=== PATIENT | female | born 1965 | race Caucasian/White ===

== ENCOUNTER 2017-03-05 14:20 | Inpatient (IN) ==
[2017-03-05] MEDS ORDERED: IPRATROPIUM/ALBUTEROL 3 ML AMPUL.NEB NEB ONE ×3 (14:40→15:51)
[2017-03-05] MEDS ORDERED: 0.9 % SODIUM CHLORIDE 1,000 ML IV ONE (14:40)
--- NOTE | 2017-03-05 15:01 | Emergency Department Note ---
General Adult HPI - General Chief complaint: Cold/Flu Symptoms Stated complaint: SOB, cough, chest congestion Time Seen by Provider: 03/05/17 14:27 Source: patient Mode of arrival: ambulatory Limitations: no limitations - History of Present Illness HPI Narrative: 51-year-old female presents with cough and chest congestion 5 days. She states she talked to her PCP and they called in azithromycin which she has been taking for 3 days. She went in to see her PCP today but they said she should come in to the ER because she is getting worse. She has shortness of breath and has a history of pneumonia. She does not feel as though she has had a fever. She has not been eating for the last 2 days and has had poor p.o. intake. She has not vomited. No history of COPD or asthma but she chronically gets pneumonia/bronchitis - Related Data Home Medications Medication Instructions Recorded Confirmed FLUoxetine HCL [Prozac] 60 mg PO QAM 10/08/15 03/05/17 HYDROcodone/APAP 10/325MG [[place] 1 tab PO Q6 10/08/15 03/05/17 10/325Mg] Pregabalin [Lyrica] 150 mg PO Q6H 10/08/15 03/05/17 busPIRone [Buspar] 15 mg PO TID 10/08/15 03/05/17 fentaNYL [Duragesic] 75 mcg TOPICAL Q72H 10/14/15 03/05/17 Allergies Allergy/AdvReac Type Severity Reaction Status Date / Time Amoxicillin Allergy Mild Hives Verified 10/08/15 13:16 Review of Systems All systems ED: reviewed and negative except as stated. 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 Absent: conjunctival injection - Neck Neck exam: Present: normal inspection, full ROM - Chest Chest inspection: Present: normal inspection, symmetric chest wall rise - Respiratory Respiratory exam: Present: wheezes (crackles and wheezes in all lung armstrong) - Cardiovascular Cardiovascular exam: Present: regular rate, normal heart sounds - Abdominal Exam Abdominal exam: Present: soft, normal bowel sounds. Absent: tenderness - Extremities Exam Extremities exam: Present: normal inspection, full ROM - Neurological Exam Neurological exam: Present: alert, oriented X3 - Psychiatric Psychiatric exam: Present: normal affect, normal mood - Skin Skin exam: Present: warm, dry, intact Course Course Narrative: During her stay she would start to fall asleep and her oxygen saturation would drop to mid 80s. She was put on Oxygen and moved to a telemetry bed. Labs looked OK but since she could not go off O2 without dropping she will be admitted by Dr. Burgos. She also takes pain medication for back and neck pain. Vital Signs Temperature 98.0 F 03/05/17 14:21 Pulse Rate 58 L 03/05/17 14:21 Respiratory Rate 18 03/05/17 14:21 Blood Pressure 118/65 03/05/17 14:21 Pulse Oximetry (%) 93 03/05/17 14:21 Temperature 98.0 F 03/05/17 14:21 Pulse Rate 76 03/05/17 17:16 Respiratory Rate 22 03/05/17 15:21 Blood Pressure 106/69 03/05/17 17:16 Pulse Oximetry (%) 94 03/05/17 17:16 Medical Decision Making - Lab Data Lab results reviewed: Yes I reviewed the patient's lab results. Result diagrams: 03/05/17 14:59 03/05/17 14:58 Lab Results 03/05/17 03/05/17 03/05/17 Range/Units 14:58 14:58 14:58 WBC (4.5-11.0) K/mcL RBC (4.00-5.20) M/mcL Hgb (12.0-15.0) g/dL Hct (36.0-48.0) % MCV (80.0-100.0) fL MCH (26.0-34.0) pg MCHC (31.0-36.0) g/dL RDW (11.5-14.5) % Plt Count (140-440) K/mcL MPV (7.4-10.4) fL Total Counted Seg Neutrophils % (38-78) % Band Neutrophils % Lymphocytes % (15-49) % Monocytes % (Manual) (1-12) % Eosinophils % (Manual) (0-7) % Basophils % (Manual) (0-2) % Platelet Estimate (NORMAL) RBC Morphology (NORMAL) D-Dimer 0.88 H (0.00-0.40) ug/ml VBG Lactic Acid 1.8 (0.5-2.2) mmol/L Sodium 137 (133-145) mmol/L Potassium 3.4 (3.3-5.1) mmol/L Chloride 94 L (96-108) mmol/L Carbon Dioxide 28 (22-30) mmol/L Anion Gap 15.0 (8-16) BUN 12 (6-20) mg/dl Creatinine 0.7 (0.6-1.1) mg/dl GFR Calculation 100 Glucose 96 (70-105) mg/dL Calcium 9.7 (8.6-10.4) mg/dl Total Bilirubin 1.1 H (0.0-1.0) mg/dL AST 21 (0-37) U/l ALT 15 (0-40) U/l Alkaline Phosphatase 114 (39-117) U/L Total Protein 8.1 (5.9-8.4) gm/dL Albumin 4.5 (3.2-5.2) gm/dL Globulin 3.6 (2.2-3.7) gm/dL Albumin/Globulin Ratio 1.3 (1.0-2.3) 03/05/17 Range/Units 14:59 WBC 8.3 (4.5-11.0) K/mcL RBC 4.81 (4.00-5.20) M/mcL Hgb 14.4 (12.0-15.0) g/dL Hct 43.7 (36.0-48.0) % MCV 90.7 (80.0-100.0) fL MCH 30.0 (26.0-34.0) pg MCHC 33.0 (31.0-36.0) g/dL RDW 13.8 (11.5-14.5) % Plt Count 312 (140-440) K/mcL MPV 8.4 (7.4-10.4) fL Total Counted 100 Seg Neutrophils % 80 H (38-78) % Band Neutrophils % Not Reportable Lymphocytes % 13 L (15-49) % Monocytes % (Manual) 4 (1-12) % Eosinophils % (Manual) 2 (0-7) % Basophils % (Manual) 1 (0-2) % Platelet Estimate Normal (NORMAL) RBC Morphology Normal (NORMAL) D-Dimer (0.00-0.40) ug/ml VBG Lactic Acid (0.5-2.2) mmol/L Sodium (133-145) mmol/L Potassium (3.3-5.1) mmol/L Chloride (96-108) mmol/L Carbon Dioxide (22-30) mmol/L Anion Gap (8-16) BUN (6-20) mg/dl Creatinine (0.6-1.1) mg/dl GFR Calculation Glucose (70-105) mg/dL Calcium (8.6-10.4) mg/dl Total Bilirubin (0.0-1.0) mg/dL AST (0-37) U/l ALT (0-40) U/l Alkaline Phosphatase (39-117) U/L Total Protein (5.9-8.4) gm/dL Albumin (3.2-5.2) gm/dL Globulin (2.2-3.7) gm/dL Albumin/Globulin Ratio (1.0-2.3) - Radiology Data Radiology results reviewed: Yes I reviewed the patient's radiology results. Probable atypical left suprahilar infiltrate extending into the left upper lobe. Suggest follow-up chest x-ray two weeks to ensure complete clearance following antibiotics. If there is any persistent density on follow-up film, a chest CT will be required to exclude malignancy Disposition Pt seen by RETAIL PHARMACY MANAGER/PA only: Yes Disposition: Xfer As Inpt ([facility]) Condition: Fair Referrals: Selam Samson [Primary Care Provider] -
--- NOTE | 2017-03-05 15:09 | XRay Report ---
CLINICAL INFORMATION: Shortness of breath and cough COMPARISON: Chest x-ray from 08/28/2014 04/30/2015 FINDINGS: Heart is normal in size configuration. Prominent fat pad blunts the right vertebral ankle as a chronic finding. There appears be a small right suprahilar infiltrate emanating in the right upper lobe. This could also represent atypical mass. Underlying COPD changes noted. Left posterior costophrenic angle is blunted chronically blunted by scar IMPRESSION: Probable atypical left suprahilar infiltrate extending into the left upper lobe. Suggest follow-up chest x-ray two weeks to ensure complete clearance following antibiotics. If there is any persistent density on follow-up film, a chest CT will be required to exclude malignancy Interpreted and Authenticated by: Shimon Rocha 03/05/17
[2017-03-05 15:20] LABS: Mean Cell Volume 90.7 fL (80.0-100.0); Platelet Count 312 K/mcL (140-440); RBC 4.81 M/mcL (4.00-5.20); Red Cell Distribution Width 13.8 % (11.5-14.5)
[2017-03-05 15:37] LABS: Basophils % (Manual) 1 % (0-2); Eosinophils % (Manual) 2 % (0-7); Lymphocytes % 13 % (15-49); Monocytes % (Manual) 4 % (1-12); Platelet Estimate NORMAL (NORMAL); RBC Morphology NORMAL (NORMAL); Segmented Neutrophils % 80 % (38-78)
[2017-03-05 15:38] LABS: ALT/SGPT 15 U/l (0-40); Albumin 4.5 gm/dL (3.2-5.2); Albumin/Globulin Ratio 1.3 (1.0-2.3); Alkaline Phosphatase 114 U/L (39-117); Blood Urea Nitrogen 12 mg/dl (6-20)
[2017-03-05] MEDS ORDERED: methylPREDNISolone SOD SUCC 125 MG/2 ML VIAL IV ONE (15:59)
[2017-03-05] MEDS ORDERED: cefTRIAXone 1 GM in DEXTROSE 5% IN WATER 50 ML IV ONE (16:08)
[2017-03-05] MEDS ORDERED: HYDROcodone/APAP 10/325MG TABLET PO ONE ×2 (17:26→23:46)
[2017-03-05] MEDS ORDERED: HYDROcodone/APAP 5/325MG TABLET PO ONE (17:36)
[2017-03-05] MEDS ORDERED: NALOXONE HCL 0.4 MG/ML VIAL IV PRN (18:53)
[2017-03-05] MEDS ORDERED: MAGNESIUM HYDROXIDE 30 ML ORAL.SUSP PO PRN (18:53)
[2017-03-05] MEDS ORDERED: ONDANSETRON 4 MG/2 ML VIAL IV PRN (18:53)
[2017-03-05] MEDS ORDERED: CALCIUM CARBONATE 500 MG TAB.CHEW CHEWED PRN (18:53)
[2017-03-05] MEDS ORDERED: DOCUSATE SODIUM 100 MG CAPSULE PO PRN (18:53)
[2017-03-05] MEDS ORDERED: IPRATROPIUM 2.5 ML AMPUL.NEB NEB PRN (18:53)
[2017-03-05] MEDS ORDERED: ACETAMINOPHEN 325 MG TABLET PO PRN (18:53)
[2017-03-05] MEDS ORDERED: POTASSIUM CHLORIDE 20 MEQ/10 ML VIAL IV ONE (19:49)
--- NOTE | 2017-03-05 19:52 | Internal Med History&Physical ---
Medical - H&P: HPI Patient information: Note initiated : 03/05/17 at 7:44 pm Patient: Catalina Cole 51 y/o F admitted on 03/05/17 for SOB, cough, chest congestion. History of present illness: Ms. Cole is a 51 year old female with a history of depression, and chronic back pain. About 5 days ago she developed fever, chest congestion, increasing shortness of breath, chills. She had a mild headache and dizziness, but that has mostly resolved. She has had significant anorexia, and says she just has not been able to get herself to eat or drink much over the last several days. She reportedly called her primary care physician, called in a Zithromax prescription. She went to his office today to follow-up, but they told her she was much worse, and needed to come to the emergency room for evaluation. Chest x-ray showed a left apical infiltrate, atypical. O2 saturations seemed fine on room air while she was awake, but when she drifted off to sleep her saturations dropped down into the low 80s. Lactic acid and white blood cell count were normal. Follow-up ABG shows significant room air hypoxia. Patient does report recent cough productive of yellow phlegm. Her chest has been feeling tight. She has not had a bowel movement, but says she also has not eaten. She otherwise denies new eye or ear symptoms, new sinus symptoms, sore throat. She denies chest pain or palpitations, abdominal pain, nausea or vomiting, diarrhea, dysuria. Patient does use edible marijuana products daily, and also drinks about 1 glass of wine or beer every day. She denies recent episodes of getting drunk or passing out. Past medical history: Depression Right knee osteoarthritis. Recurrent bronchitis. History of a lung biopsy with a subsequent pneumothorax. Underlying COPD, previously undiagnosed. Surgical history: Right knee arthroscopy, carpal tunnel surgery, 4 or 5 knee surgeries, neck surgery, 3 back surgeries Current medications: Mirtazapine 10 mg 1-2 tabs nightly as needed Omeprazole 20 mg daily as needed GERD BuSpar 15 mg 3 times daily Lyrica 150 mg every 6 hours Fentanyl patch 75 mcg topically every 48 hours Prozac 60 mg every morning Hydrocodone/APAP 10/325 1 tab every 6 hours as needed Patient reports she eats brownies with marijuana in them, almost daily, to cut down on her need for pain medication per Family history: Father had blood clots, rheumatoid arthritis, skin cancer, gout. Mother had history o osteoporosis, osteoarthritis, rheumatoid arthritis.. Siblings have history of diabetes, rheumatoid arthritis, cancer Social history: Patient does use alcohol, reported as 1 glass of wine or beer per day.. She uses marijuana intervals on an almost daily basis. She smokes cigarettes for about 1 year when she was young, and has not smoked since then. She is from her , although he does accompany her tonight. She says she has been exposed to a couple of coworkers with colds lately, and has been working very hard on building a house. Says she has been struggling with depression, since her son Medical - H&P: Meds Home Medications Medication Instructions Recorded Confirmed Type FLUoxetine HCL [Prozac] 60 mg PO QAM 10/08/15 03/05/17 History HYDROcodone/APAP 10/325MG [[place] 1 tab PO Q6 10/08/15 03/05/17 History 10/325Mg] Pregabalin [Lyrica] 150 mg PO Q6H 10/08/15 03/05/17 History busPIRone [Buspar] 15 mg PO TID 10/08/15 03/05/17 History fentaNYL [Duragesic] 75 mcg TOPICAL Q72H 10/14/15 03/05/17 History Allergies Allergy/AdvReac Type Severity Reaction Status Date / Time Amoxicillin Allergy Mild Hives Verified 10/08/15 13:16 Medical - H&P: Exam - Constitutional Vitals: Temp Pulse Resp BP Pulse Ox 98.1 F 69 16 111/60 92 03/05/17 18:52 03/05/17 18:52 03/05/17 18:52 03/05/17 18:52 03/05/17 18:52 Respiratory rate ranges from 18-24. O2 saturation drops into the low 80s when she is asleep, on room air. She is currently 92% on room air while awake. Temperature 98.1. Heart rate 69. Blood pressure 111/60. She is sitting up in bed, and says she feels much better than when she arrived. She feels that the breathing treatments and oxygen made a huge difference. She is eating a sandwich when I entered the room, and her notes that she really has not eaten anything for several days. He does have a very congested sounding cough. Head: Normocephalic, atraumatic. Eyes: Pupils are fairly pinpoint, but otherwise EOMI, anicteric, PERRLA. Ears: TMs and canals are clear. pharynx is clear. Teeth are in good repair. Posterior pharynx looks normal. Neck is supple, without obvious lymphadenopathy, JVD, thyromegaly, bruits. Cardiac exam shows regular rate and rhythm with normal S1 and S2, without murmurs, rubs, gallops. Lungs: She has diffuse coarse breath sounds and loud wheezing heard throughout all lung armstrong. There is mild accessory muscle use. I did not detect crackles or definite rhonchi. Abdomen: Is soft and nontender without obvious masses. Bowel sounds are active. Extremities: Show no cyanosis, clubbing, edema. Neurologic exam: Is grossly nonfocal Medical - H&P: Reslt - Labs CBC & Chem 7: 03/05/17 14:59 03/05/17 14:58 Labs: March 05: CBC: Differential shows 80% neutrophils, but CBC is otherwise normal. D-dimer is elevated at 0.80 next Lactic acid is normal at 1.8 next LFTs are normal, other than a total bilirubin of 1.1. ABG on 2 L nasal cannula: Shows pH of 7.42, PCO2 43, PO2 of 54, bicarb 27, O2 saturation 88%. Chest x-ray: Shows probable atypical left suprahilar infiltrate extending into the left upper lobe. Follow-up chest x-ray or CT scan is recommended to exclude malignancy. Underlying COPD changes are also noted. Medical - H&P: A/P (1) Left upper lobe pneumonia Current visit: Yes Status: Acute (2) Acute respiratory failure Current visit: Yes Status: Acute (3) COPD (chronic obstructive pulmonary disease) Current visit: Yes Status: Acute (4) Depression Current visit: Yes Status: Acute (5) Chronic pain Current visit: Yes Status: Acute - Narrative A/P Narrative: #1. Pulmonary. This patient has been struggling with cough and shortness of breath for about 5 days now. She presents to the ER today, with an unusual looking chest x-ray. She may well have pneumonia superimposed on COPD, but d-dimer is also elevated. PO2 is quite low on her blood gas. -Admit for closer monitoring. -Treat for pneumonia with IV Rocephin plus Zithromax. -Order CT angiogram, to get a better look at her pneumonia, rule out mass, rule out PE. There is also strong family history of blood clots. Next line-blood and sputum cultures have been ordered. -COPD is noted on her chest x-ray. She is a former smoker. Oxygen, duo nebs, albuterol nebs as needed, pulmonary toilet. Add IV steroids. 2. Psychiatric. History of depression. Continue current medications: Mirtazapine, BuSpar, Prozac. 3. CODE STATUS: Full code. She says her will act as her POA. 4. DVT prophylaxis: Subcu heparin. 5. Chronic pain, related to numerous previous back surgeries. Continue fentanyl patch, Lyrica, as needed [place]. 6. GI. Continue omeprazole for as needed GERD symptoms. 7. Chronic alcohol and marijuana use. Follow for signs of withdrawal. This visit took approximately 60 minutes, to review the case with the ER MD, review the patient's test results, interview and examine her, and write orders. Medical - H&P: Qual - VTE Deep Vein Thrombosis/Pulmonary Embolism Present on Admission: No
[2017-03-05] MEDS: POTASSIUM CHLORIDE 20 MEQ in 0.45 % SODIUM CHLORIDE 1,000 ML IV SCH (19:56)
[2017-03-05] MEDS ORDERED: IOPAMIDOL 100 ML BOTTLE IJ ONE (22:34)
[2017-03-05] MEDS: AZITHROMYCIN 500 MG in DEXTROSE 5% IN WATER 250 ML IV SCH (23:06)
[2017-03-05] MEDS: 0.9 % SODIUM CHLORIDE 10 ML SYRINGE IV SCH (23:06)
[2017-03-05] MEDS: fentaNYL 75 MCG PATCH TOPICAL SCH (23:08)
[2017-03-05] MEDS: PREGABALIN 150 MG CAPSULE PO SCH (23:34)
[2017-03-05] MEDS: IPRATROPIUM/ALBUTEROL 3 ML AMPUL.NEB NEB SCH (23:35)
[2017-03-05] MEDS: BUDESONIDE 0.5 MG/2 ML AMPUL.NEB NEB SCH (23:37)
[2017-03-05] MEDS ORDERED: PREGABALIN 150 MG CAPSULE PO ONE (23:40)
[2017-03-06] MEDS: HYDROcodone/APAP 10/325MG TABLET PO SCH ×2 (00:03→05:48)
[2017-03-06] MEDS: IPRATROPIUM/ALBUTEROL 3 ML AMPUL.NEB NEB SCH ×4 (01:36→20:27)
[2017-03-06] MEDS: POTASSIUM CHLORIDE 20 MEQ in 0.45 % SODIUM CHLORIDE 1,000 ML IV SCH ×4 (05:49→21:18)
[2017-03-06] MEDS ORDERED: PREGABALIN 150 MG CAPSULE PO ONE (05:49)
[2017-03-06] MEDS: 0.9 % SODIUM CHLORIDE 10 ML SYRINGE IV SCH ×3 (05:49→22:07)
[2017-03-06] MEDS ORDERED: HYDROcodone/APAP 10/325MG TABLET PO ONE (05:49)
[2017-03-06] MEDS: PREGABALIN 150 MG CAPSULE PO SCH ×3 (05:49→18:18)
[2017-03-06 06:42] LABS: Basophils # (Auto) 0 K/mcL (0.0-0.3); Basophils % (Auto) 0 % (0.0-2.0); Eosinophils # (Auto) 0 K/mcL (0.0-0.7); Eosinophils % (Auto) 0 % (0.0-7.0); Lymphocytes # (Auto) 0.4 K/mcL (1.5-4.8); Lymphocytes % (Auto) 4.7 % (15.5-49.0); Mean Cell Volume 90.4 fL (80.0-100.0); Mean Corpuscular HGB Conc 34.2 g/dL (31.0-36.0); Mean Corpuscular Hemoglobin 30.9 pg (26.0-34.0); Monocytes # (Auto) 0.3 K/mcL (0.1-0.9); Monocytes % (Auto) 3.3 % (1.0-12.0); Platelet Count 276 K/mcL (140-440); RBC 3.87 M/mcL (4.00-5.20)
[2017-03-06] MEDS: BUDESONIDE 0.5 MG/2 ML AMPUL.NEB NEB SCH ×2 (07:20→19:33)
[2017-03-06 07:22] LABS: ALT/SGPT 26 U/l (0-40); Albumin 3.7 gm/dL (3.2-5.2); Albumin/Globulin Ratio 1.2 (1.0-2.3); Alkaline Phosphatase 106 U/L (39-117); Bilirubin,Direct < 0.2 mg/dL (0.0-0.3); Blood Urea Nitrogen 11 mg/dl (6-20); Gamma Glutamyl Transpeptidase 32 U/L (5-36); Uric Acid 3.3 mg/dL (2.5-8.0)
--- NOTE | 2017-03-06 07:41 | Cat Scan Report ---
CLINICAL INFORMATION: Chest pain COMPARISON: 03/03/[address] TECHNIQUE: Axial images obtained through the chest. 80 cc intravenous contrast administration was administered, and scanning was performed during pulmonary arterial phase. Sagittally and coronally reformatted images were obtained. MIP reformatted images. FINDINGS: The pulmonary arteries are well opacified - no evidence of embolus. The central pulmonary artery is mildly dilated (3.1 cm) suggestive, but not diagnostic, of pulmonary hypertension. The thoracic aorta is normal in contour and caliber. There is no adenopathy in the mediastinal hilar or axillary region. The heart is normal in size configuration. No gross evidence of atherosclerotic plaque in the coronary arteries. Esophagus is normal. A 5.2 cm pericardial cyst is seen in the right cardiophrenic angle - unchanged. Thyroid is normal. Pulmonary parenchymal windows show mild bronchitis. There are moderate sized patchy alveolar infiltrates within the anterior segment of the right upper lobe with smaller patchy infiltrates in the left upper lobe, right middle lobe, and both lower lobes. These are all new from the previous study. A 9.3 mm well-circumscribed pleural-based nodule in the anterior basilar segment of the left lower lobe could represent a reactive benign subpulmonic lymph node. It is new from the previous study. Tiny bilateral pleural effusions are noted. Bone windows show no osseous abnormality. Images through the upper abdomen show the visualized liver, superior left kidney spleen and pancreas abdominal aorta and adrenal glands to be normal. IMPRESSION: 1. No evidence of pulmonary embolus. There is mild enlargement of the central pulmonary artery suggestive, but not diagnostic, of pulmonary hypertension. Consider echocardiogram correlation 2. Moderate sized patchy infiltrates diffusely throughout both lungs - most prominent in the anterior segment of the right upper lobe. Suspect infection or aspiration 3. Tiny bilateral pleural effusions 4. 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
[2017-03-06] MEDS: methylPREDNISolone SOD SUCC 125 MG/2 ML VIAL IV SCH ×2 (08:29→21:43)
[2017-03-06] MEDS: ENOXAPARIN 40 MG/0.4 ML SYRINGE SQ SCH (08:29)
[2017-03-06] MEDS: FLUoxetine HCL 20 MG CAPSULE PO SCH (08:29)
[2017-03-06] MEDS: cefTRIAXone 1 GM in DEXTROSE 5% IN WATER 50 ML IV SCH (08:29)
[2017-03-06] MEDS: busPIRone 5 MG TABLET PO SCH ×3 (08:44→21:42)
--- NOTE | 2017-03-06 09:10 | XRay Report ---
CLINICAL INFORMATION: Follow pneumonia COMPARISON: 03/05/2017 FINDINGS: Heart size, mediastinum and pulmonary vessels are normal. Prominent fat pad over the right cardiophrenic angle seen - as before. Right perihilar infiltrate extending into the right upper lobe shows improved aeration compared to yesterday. Underlying chronic bronchitis noted IMPRESSION: Improving right upper lobe infiltrate with smaller residual Interpreted and Authenticated by: Shimon Rocha 03/06/17
[2017-03-06] MEDS: AZITHROMYCIN 500 MG in DEXTROSE 5% IN WATER 250 ML IV SCH (12:15)
--- NOTE | 2017-03-06 13:24 | Internal Med Progress Note ---
Medical - PN: Subj Patient information: Note initiated : 03/06/17 at 1:24 pm Patient: Catalina Cole 51 y/o F admitted on 03/05/17 for SOB, cough, chest congestion. Interval history: March 05, 2017: History of present illness: Ms. Cole is a 51 year old female with a history of depression, and chronic back pain. About 5 days ago she developed fever, chest congestion, increasing shortness of breath, chills. She had a mild headache and dizziness, but that has mostly resolved. She has had significant anorexia, and says she just has not been able to get herself to eat or drink much over the last several days. She reportedly called her primary care physician, called in a Zithromax prescription. She went to his office today to follow-up, but they told her she was much worse, and needed to come to the emergency room for evaluation. Chest x-ray showed a left apical infiltrate, atypical. O2 saturations seemed fine on room air while she was awake, but when she drifted off to sleep her saturations dropped down into the low 80s. Lactic acid and white blood cell count were normal. Follow-up ABG shows significant room air hypoxia. Patient does report recent cough productive of yellow phlegm. Her chest has been feeling tight. She has not had a bowel movement, but says she also has not eaten. She otherwise denies new eye or ear symptoms, new sinus symptoms, sore throat. She denies chest pain or palpitations, abdominal pain, nausea or vomiting, diarrhea, dysuria. Patient does use edible marijuana products daily, and also drinks about 1 glass of wine or beer every day. She denies recent episodes of getting drunk or passing out. March 06: The patient did not sleep very well last night, so is quite sleepy this morning. When she does wake up, she says she is definitely having decreased shortness of breath and cough compared to yesterday. She is still feeling quite fatigued, and still has a very congested cough. Otherwise, she denies fever chills, chest pain or palpitations, GI or symptoms. - Constitutional Vitals: Vital Signs Temp Pulse Resp BP Pulse Ox 97.9 F 60 16 96/47 92 03/06/17 11:37 03/06/17 07:21 03/06/17 11:37 03/06/17 11:37 03/06/17 11:37 Period Temp Pulse Resp BP Sys/[place] Pulse Ox Last 24 Hr 97.2 F-98.1 F 55-69 16-18 96-111/47-64 92-97 Intake and Output 03/05/17 03/06/17 03/06/17 21:59 05:59 13:59 Intake Total 2387 / 2387 1810 / 1810 Output Total 575 / 575 1000 / 1000 2100 / 2100 Balance -575 / 525 1387 / 1387 -290 / -290 Weight 130 lb Intake & Output: Intake & Output 03/05/17 03/06/17 03/06/17 21:59 05:59 13:59 Intake Total 2387 / 2387 1810 / 1810 Output Total 575 / 575 1000 / 1000 2099 / 2100 Balance -575 / 525 1387 / 1387 -290 / -290 Weight 130 lb Intake: IV 250 / 250 1010 / 1010 Zithromax 500 mg In 250 / 250 Dextrose 5% in Water 250 ml @ 250 mls/hr IV DAILY JONNA Rx#:[id number] Potassium Chloride 20 Meq 1010 / 1010 In Sodium Chloride 0.45% 1,000 ml @ 100 mls/hr IV .Q10H6M JONNA Rx#: [id number] Oral 2137 / 2137 800 / 800 Output: Void Amount 575 / 575 1000 / 1000 2100 / 2100 Other: Meal yogurt and popsicle Percent of Meal Consumed 100% Feeding Ability Independent On exam, she is sleepy, but otherwise alert and cooperative. Temperature is 97.6, heart rate 53, respiratory rate 16, blood pressure 100/61, O2 saturation 93% on 2 L nasal cannula. Neck is supple without obvious lymphadenopathy or JVD. Cardiac exam shows regular rate and rhythm. Lungs continue to have diffuse wheezing throughout both lung armstrong, although a bit less noisy than yesterday. Abdomen is soft and nontender without obvious masses. Extremities show no edema. Neurologic: Patient is somewhat jumpy and anxious. She notes that she is not used to being away from her service dog, and says that the dog really calms her down. Medical - PN: Obj Da - Labs CBC & Chem 7: 03/06/17 04:32 03/06/17 04:32 Labs: Abnormal Lab Results 03/06/17 03/06/17 04:32 04:32 RBC 3.87 L Hct 35.0 L Gran % 92.0 H Lymph % (Auto) 4.7 L Lymph # (Auto) 0.4 L Anion Gap 17.0 H Glucose 175 H March 06: Blood cultures are negative so far. Sputum: Shows moderate polys. Culture is pending. Chest x-ray: Shows improving right upper lobe infiltrate, with underlying chronic bronchitis noted March 05: CT angiogram: Shows mild enlargement of the central pulmonary arteries suggestive of pulmonary hypertension. Moderate sized patchy infiltrates are noted diffusely throughout both lungs, most prominent in the anterior segment of the right upper lobe. Suspect infection versus aspiration. Tiny bilateral pleural effusions. 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 CBC: Differential shows 80% neutrophils, but CBC is otherwise normal. D-dimer is elevated at 0.88 Lactic acid is normal at 1.8 LFTs are normal, other than a total bilirubin of 1.1. ABG on 2 L nasal cannula: Shows pH of 7.42, PCO2 43, PO2 of 54, bicarb 27, O2 saturation 88%. Chest x-ray: Shows probable atypical left suprahilar infiltrate extending into the left upper lobe. Follow-up chest x-ray or CT scan is recommended to exclude malignancy. Underlying COPD changes are also noted. Meds: Medications Acetaminophen (Tylenol) 650 mg PO Q6HP PRN PRN Reason: PAIN/FEVER > 101 Hydrocodone Bitart/Acetaminophen ([place] 10/325mg) 1 tab PO Q6HP PRN PRN Reason: Pain Albuterol/Ipratropium (Duoneb) 3 ml NEB Q6HRT [facility] Last Admin: 03/06/17 07:20 Dose: 3 ml Budesonide (Pulmicort) 0.5 mg NEB Q12 [facility] Last Admin: 03/06/17 07:20 Dose: 0.5 mg Buspirone HCl (Buspar) 15 mg PO TID [facility] Last Admin: 03/06/17 08:44 Dose: 15 mg Calcium Carbonate/Glycine (Tums) 1,000 mg CHEWED Q4HP PRN PRN Reason: Dyspepsia Docusate Sodium (Colace) 100 mg PO BID PRN PRN Reason: Constipation Enoxaparin Sodium (Lovenox) 40 mg SQ DAILY [facility] Last Admin: 03/06/17 08:29 Dose: 40 mg Fentanyl (Duragesic) 75 mcg TOPICAL Q48H [facility] Last Admin: 03/05/17 23:08 Dose: Not Given Fluoxetine HCl (Prozac) 60 mg PO DAILY [facility] Last Admin: 03/06/17 08:29 Dose: 60 mg Azithromycin 500 mg/ Dextrose 250 mls @ 250 mls/hr IV DAILY [facility] Stop: 03/07/17 09:59 Last Admin: 03/06/17 12:15 Dose: 250 mls/hr Ceftriaxone Sodium 1 gm/ (Dextrose) 50 mls @ 100 mls/hr IV DAILY [facility] Last Admin: 03/06/17 08:29 Dose: 100 mls/hr Potassium Chloride 20 meq/ (Sodium Chloride) 1,010 mls @ 100 mls/hr IV .Q10H6M [facility] Last Admin: 03/06/17 08:30 Dose: 100 mls/hr Ipratropium [place] (Atrovent) 2.5 ml NEB Q2HP PRN PRN Reason: Shortness Of Breath Or Wheezing Magnesium Hydroxide (Milk Of Magnesia) 30 ml PO DAILYP PRN PRN Reason: Constipation Methylprednisolone Sodium Succinate (Solu-Medrol) 80 mg IV Q12 [facility] Last Admin: 03/06/17 08:29 Dose: 80 mg Mirtazapine (Remeron) 0 mg PO HSP PRN PRN Reason: DEPRESSION Naloxone HCl (Narcan) 0.1 mg IV Q2MIN PRN PRN Reason: Opiate Reversal Omeprazole (Prilosec) 20 mg PO ACB PRN PRN Reason: Indigestion Ondansetron HCl (Zofran) 4 mg IV Q6HP PRN PRN Reason: Nausea And Vomiting Pregabalin (Lyrica) 150 mg PO Q6H [facility] Last Admin: 03/06/17 12:15 Dose: 150 mg Sodium Chloride (Saline Flush) 10 ml IV Q8 [facility] Last Admin: 03/06/17 05:49 Dose: Not Given Medical - PN: A/P - Time Spent With Patient Total time spent is greater than 50% in coordination of care (as documented) at patient's floor/unit and/or counseling patient: 25 - 35 minutes (1) Left upper lobe pneumonia Status: Acute Current Visit: Yes (2) Acute respiratory failure Status: Acute Current Visit: Yes (3) COPD (chronic obstructive pulmonary disease) Status: Acute Current Visit: Yes (4) Depression Status: Acute Current Visit: Yes (5) Chronic pain Status: Acute Current Visit: Yes - Narrative A/P Narrative: #1. Pulmonary. This patient has been struggling with cough and shortness of breath for about 5 days now. PO2 is quite low on her blood gas. CT scan confirms bilateral pneumonia, suggestive of possible aspiration. She also has underlying COPD, and pulmonary artery enlargement suggestive of possible pulmonary hypertension. All of these things certainly contribute to her risk of hypoxia. Clinically she is much improved today. She still quite fatigued, but oxygenation has improved quite a bit. -Continue IV Rocephin plus Zithromax. Continue oxygen, nebulized bronchodilators, pulmonary toilet, steroids. -COPD is noted on her chest x-ray. Continue treatment as above 2. Psychiatric. History of depression. Continue current medications: Mirtazapine, BuSpar, Prozac. -I checked with staff, and she can have her service dog brought in if she so chooses. 3. CODE STATUS: Full code. She says her will act as her POA. 4. DVT prophylaxis: Subcu heparin. 5. Chronic pain, related to numerous previous back surgeries. Continue fentanyl patch, Lyrica, as needed [place]. She did not sleep well last night, but apparently did not receive her mirtazapine. Hopefully she can get that tonight. 6. GI. Continue omeprazole for as needed GERD symptoms. 7. Chronic alcohol and marijuana use. Follow for signs of withdrawal. Medical - PN: Qual - VTE Deep Vein Thrombosis/Pulmonary Embolism Present on Admission: No
[2017-03-06] MEDS: HYDROcodone/APAP 10/325MG TABLET PO PRN ×2 (14:53→21:42)
[2017-03-06] MEDS ORDERED: MIRTAZAPINE 15 MG TABLET PO PRN (21:00)
[2017-03-07] MEDS: PREGABALIN 150 MG CAPSULE PO SCH ×3 (00:36→11:41)
[2017-03-07] MEDS: IPRATROPIUM/ALBUTEROL 3 ML AMPUL.NEB NEB SCH ×3 (00:36→12:43)
[2017-03-07] MEDS: POTASSIUM CHLORIDE 20 MEQ in 0.45 % SODIUM CHLORIDE 1,000 ML IV SCH ×2 (00:46→11:02)
[2017-03-07 05:34] LABS: Basophils # (Auto) 0 K/mcL (0.0-0.3); Basophils % (Auto) 0.1 % (0.0-2.0); Eosinophils # (Auto) 0 K/mcL (0.0-0.7); Eosinophils % (Auto) 0 % (0.0-7.0); Granulocytes % (Auto) 94.8 % (38.0-78.0); Lymphocytes # (Auto) 0.4 K/mcL (1.5-4.8); Lymphocytes % (Auto) 3.4 % (15.5-49.0); Mean Cell Volume 91.5 fL (80.0-100.0); Mean Corpuscular HGB Conc 33.5 g/dL (31.0-36.0); Mean Corpuscular Hemoglobin 30.7 pg (26.0-34.0); Monocytes # (Auto) 0.2 K/mcL (0.1-0.9); Monocytes % (Auto) 1.7 % (1.0-12.0); Platelet Count 296 K/mcL (140-440); Red Cell Distribution Width 14.3 % (11.5-14.5)
[2017-03-07 05:47] LABS: ALT/SGPT 64 U/l (0-40); Albumin 3.6 gm/dL (3.2-5.2); Albumin/Globulin Ratio 1.3 (1.0-2.3); Alkaline Phosphatase 120 U/L (39-117); Bilirubin,Direct < 0.2 mg/dL (0.0-0.3); Blood Urea Nitrogen 11 mg/dl (6-20); Gamma Glutamyl Transpeptidase 61 U/L (5-36); Magnesium 1.9 mg/dL (1.6-2.5); Uric Acid 2.3 mg/dL (2.5-8.0)
[2017-03-07] MEDS: 0.9 % SODIUM CHLORIDE 10 ML SYRINGE IV SCH ×2 (06:05→13:12)
[2017-03-07] MEDS: BUDESONIDE 0.5 MG/2 ML AMPUL.NEB NEB SCH (07:20)
[2017-03-07] MEDS ORDERED: OMEPRAZOLE 20 MG CAPSULE PO PRN (07:30)
[2017-03-07] MEDS: HYDROcodone/APAP 10/325MG TABLET PO PRN ×2 (09:44→09:46)
[2017-03-07] MEDS: busPIRone 5 MG TABLET PO SCH (09:45)
[2017-03-07] MEDS: FLUoxetine HCL 20 MG CAPSULE PO SCH (09:45)
[2017-03-07] MEDS: methylPREDNISolone SOD SUCC 125 MG/2 ML VIAL IV SCH (09:47)
[2017-03-07] MEDS: ENOXAPARIN 40 MG/0.4 ML SYRINGE SQ SCH (09:49)
[2017-03-07] MEDS: AZITHROMYCIN 500 MG in DEXTROSE 5% IN WATER 250 ML IV SCH (10:02)
[2017-03-07] MEDS: cefTRIAXone 1 GM in DEXTROSE 5% IN WATER 50 ML IV SCH (11:01)
[2017-03-07] MEDS: fentaNYL 75 MCG PATCH TOPICAL SCH (11:41)
--- NOTE | 2017-03-07 11:54 | Discharge Summary ---
Medical - DS: Prov Patient information: Note initiated : 03/07/17 at 11:54 am Patient: Catalina Cole 51 y/o F admitted on 03/05/17 for SOB, cough, chest congestion. Date of admission: 03/05/17 18:52 Discharge date: 03/07/17 Primary care physician: Selam Samson Admitting clinician: Perla De Oliveira Attending physician on discharge: Perla De Oliveira Medical - DS: Meds - Discharge Medications Prescriptions: Clindamycin HCl 300 mg PO QIDP #28 capsule Ipratropium/Albuterol [Duoneb] 3 ml NEB Q6H #30 predniSONE [Prednisone] 1 mg PO DAILY #21 tablet Active and Home Medications: Discharge medications: Clindamycin 600 mg p.o. 4 times daily 7 days for aspiration pneumonia Prednisone taper, [id number], as directed Duo nebs 3 times daily to 4 times daily until symptoms resolved Tylenol as needed BuSpar 15 mg 3 times daily Tums every 4 hours as needed Fentanyl patch 75 mcg topically every 48 hours Prozac 60 mg daily [place] 10/325 one every 6 hours as needed Lyrica 150 mg p.o. every 6 hours Mirtazapine 15 mg 1-2 tabs p.o. nightly as needed Omeprazole 20 mg p.o. daily as needed Previous home Medications: FLUoxetine HCL [Prozac] 60 mg PO QAM 10/08/15 [History Confirmed 03/06/17 Last Taken 03/06/17 60 mg.] HYDROcodone/APAP 10/325MG [[place] 10/325Mg] 1 tab PO Q6 10/08/15 [History Confirmed 03/06/17 Last Taken 03/06/17 1 tab] Pregabalin [Lyrica] 150 mg PO Q6H 10/08/15 [History Confirmed 03/06/17 Last Taken 03/06/17 05:45 150 mg.] busPIRone [Buspar] 15 mg PO TID 10/08/15 [History Confirmed 03/06/17 Last Taken 03/05/17 15:00] fentaNYL [Duragesic] 75 mcg TOPICAL every 48 hours 10/14/15 [History Confirmed 03/06/17 Last Taken 03/05/17 09:00 75 mcg] Mirtazapine 15 mg 1-2 p.o. nightly as needed Omeprazole 20 mg p.o. daily as needed Medical - DS: Hosp Hospital course: Mr. Cole is a 51 year old F March 05, 2017: History of present illness: Ms. Cole is a 51 year old female with a history of depression, and chronic back pain. About 5 days ago she developed fever, chest congestion, increasing shortness of breath, chills. She had a mild headache and dizziness, but that has mostly resolved. She has had significant anorexia, and says she just has not been able to get herself to eat or drink much over the last several days. She reportedly called her primary care physician, called in a Zithromax prescription. She went to his office today to follow-up, but they told her she was much worse, and needed to come to the emergency room for evaluation. Chest x-ray showed a left apical infiltrate, atypical. O2 saturations seemed fine on room air while she was awake, but when she drifted off to sleep her saturations dropped down into the low 80s. Lactic acid and white blood cell count were normal. Follow-up ABG shows significant room air hypoxia. Patient does report recent cough productive of yellow phlegm. Her chest has been feeling tight. She has not had a bowel movement, but says she also has not eaten. She otherwise denies new eye or ear symptoms, new sinus symptoms, sore throat. She denies chest pain or palpitations, abdominal pain, nausea or vomiting, diarrhea, dysuria. Patient does use edible marijuana products daily, and also drinks about 1 glass of wine or beer every day. She denies recent episodes of getting drunk or passing out. March 06: The patient did not sleep very well last night, so is quite sleepy this morning. When she does wake up, she says she is definitely having decreased shortness of breath and cough compared to yesterday. She is still feeling quite fatigued, and still has a very congested cough. Otherwise, she denies fever chills, chest pain or palpitations, GI or symptoms. March 07: Hospital course: This patient was admitted with pneumonia and that was failing outpatient treatment with Zithromax.. Subsequent CT scan showed patchy infiltrates throughout throughout both lungs, most prominent in the right upper lobe, suspicious for infection versus aspiration. There is also some suggestion of pulmonary hypertension. A 5 cm pericardial cyst was also noted, unchanged. Findings are also consistent with bronchitis. Patient was admitted and treated with Rocephin and Zithromax, duo nebs, oxygen. She had a great deal of wheezing and coughing on her first 2 days, but is quite improved today. Today, she feels that she is ready to go home, although she is still feeling quite fatigued. -Blood glucose has been running in the 140-170 range. This may be a steroid effect, but the patient does note that there is diabetes in her family, and that she has been eating lots of sweets lately. -Liver function tests are a bit elevated this morning, for uncertain reasons. The patient reports that she does drink 1 glass of wine per day on average, and also uses marijuana and levels almost daily. Today, she does note that she woke up in a sweat this morning, but does note decreased cough decreased wheezing and decreased dyspnea with exertion. Room air oxygen saturations are normal at rest. She denies headaches or dizziness, chest pain or palpitations, abdominal pain, GI or symptoms. On exam, she is awake and alert, in no acute distress. She is a bit fidgety, as she has been during her whole stay. Pressure 97.9, heart rate 51, respiratory rate 16, blood pressure 129/71, O2 saturation is 95% on 3 L, 90% on room air. Neck is supple without obvious lymphadenopathy or JVD. Cardiac exam shows regular rate and rhythm. Lungs: Soft scattered wheezes throughout all lung armstrong, but she is much clearer today than yesterday. There is no accessory muscle use. Abdomen is soft and nontender. Extremities show no edema. Assessment and plan: #1. Pulmonary. CT scan confirms bilateral pneumonia, suggestive of possible aspiration. She also has underlying COPD, and pulmonary artery enlargement suggestive of possible pulmonary hypertension. All of these things certainly contribute to her risk of hypoxia. Clinically she is much improved . She still quite fatigued, but oxygenation has improved . Discontinue Zithromax and Rocephin. She has received more than 3 days of Zithromax total, given her outpatient treatment as well. Start oral clindamycin, to cover for aspiration pneumonia. -We will have respiratory check to see if she needs home oxygen, but I suspect she does not. I will send her home with a nebulizer and duo nebs, and ask her to use those 3- 4 times a day, until all of the wheezing has resolved. We will also prescribe a prednisone taper. She should consider follow-up with a aerospace engineer officer armament, to go over her CT scan and see if there is further testing that needs to be done. -COPD is noted on her chest x-ray. Continue treatment as above 2. Psychiatric. History of depression. Continue current medications: Mirtazapine, BuSpar, Prozac. 3. CODE STATUS: Full code. She says her will act as her POA. 4. DVT prophylaxis: Subcu heparin. 5. Chronic pain, related to numerous previous back surgeries. Continue fentanyl patch, Lyrica, as needed [place]. 6. GI. Continue omeprazole for as needed GERD symptoms. -Liver function tests are elevated today, for uncertain reason. I asked her to have this rechecked when she sees her primary care physician, hopefully within the next week. 7. Chronic alcohol and marijuana use. Follow for signs of withdrawal. #8. Hyperglycemia. Glucoses have ranged from 137-170 while here. This may be a steroid effect, but there is a family history of diabetes. Asked her to follow this up with her regular doctor. I will see if we can add a hemoglobin A1c onto this morning 's labs. Discharge diagnosis: Possible aspiration pneumonia. COPD. Elevated LFTs. Secondary discharge diagnosis: Hyperglycemia. - Time Spent with Patient Total time spent providing and/or coordinating discharge services: Greater than 30 minutes Medical - DS: Exam - Constitutional Vitals: Vital Signs Temp Pulse Pulse Resp BP BP Pulse Ox 03/07/17 07:21 51 L 16 95 03/07/17 07:09 97.9 F 16 129/71 96 03/07/17 03:40 98.4 F 75 16 119/71 94 03/07/17 00:00 98.5 F 62 14 130/66 95 03/06/17 22:08 98 03/06/17 20:00 98.5 F 65 16 118/60 97 03/06/17 19:33 62 16 03/06/17 18:53 94 03/06/17 16:00 97.6 F 16 100/61 93 03/06/17 13:25 62 18 Intake and Output 03/06/17 03/07/17 03/07/17 21:59 05:59 13:59 Intake Total 2050 / 2050 400 / 400 Output Total 600 / 600 1800 / 1800 Balance 1450 / 1450 -1400 / -1400 Intake: IV 1010 / 1010 Potassium Chloride 20 Meq 1010 / 1010 In Sodium Chloride 0.45% 1,000 ml @ 100 mls/hr IV .Q10H6M JONNA Rx#: [id number] Oral 1040 / 1040 400 / 400 Output: Void Amount 600 / 600 1800 / 1800 Other: Meal Lunch Dinner Percent of Meal Consumed 100% 100% Feeding Ability Independent Weight 134 lb 8 oz 134 lb 8 oz Patient Weight 03/08/17 05:59 Weight 134 lb 8 oz Medical - DS: Data Labs on day of discharge: Labs from last 24 hours 03/07/17 03/07/17 04:19 04:19 WBC 12.5 H RBC 3.70 L Hgb 11.4 L Hct 33.8 L MCV 91.5 MCH 30.7 MCHC 33.5 RDW 14.3 Plt Count 296 MPV 8.6 Gran % 94.8 H Lymph % (Auto) 3.4 L [place] % (Auto) 1.7 Eos % (Auto) 0 Baso % (Auto) 0.1 Gran # 11.9 H Lymph # (Auto) 0.4 L [place] # (Auto) 0.2 Eos # (Auto) 0 Baso # (Auto) 0 Sodium 141 Potassium 4.7 Chloride 104 Carbon Dioxide 25 Anion Gap 12.0 BUN 11 Creatinine 0.6 GFR Calculation 105 Glucose 170 H Uric Acid 2.3 L Calcium 9.1 Phosphorus 2.9 Magnesium 1.9 Total Bilirubin 0.2 Direct Bilirubin < 0.2 GGT 61 H AST 83 H ALT 64 H Alkaline Phosphatase 120 H Lactate Dehydrogenase 216 Total Protein 6.4 Albumin 3.6 Globulin 2.8 Albumin/Globulin Ratio 1.3 Triglycerides 45 Preliminary micro results at discharge 03/06/17 01:21 Sputum Culture - Preliminary Sputum - Expectorated March 06: Blood cultures are negative so far. Sputum: Shows moderate polys. Negative culture so far. Chest x-ray: Shows improving right upper lobe infiltrate, with underlying chronic bronchitis noted March 05: CT angiogram: Shows mild enlargement of the central pulmonary arteries suggestive of pulmonary hypertension. Moderate sized patchy infiltrates are noted diffusely throughout both lungs, most prominent in the anterior segment of the right upper lobe. Suspect infection versus aspiration. Tiny bilateral pleural effusions. 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 CBC: Differential shows 80% neutrophils, but CBC is otherwise normal. D-dimer is elevated at 0.88 Lactic acid is normal at 1.8 LFTs are normal, other than a total bilirubin of 1.1. ABG on 2 L nasal cannula: Shows pH of 7.42, PCO2 43, PO2 of 54, bicarb 27, O2 saturation 88%. Chest x-ray: Shows probable atypical left suprahilar infiltrate extending into the left upper lobe. Follow-up chest x-ray or CT scan is recommended to exclude malignancy. Underlying COPD changes are also noted. Medical - DS: A/P - Patient/Caregiver Discharge Instructions Activity: increase activity as tolerated Diet: Consistent Carbohydrate Additional Instructions: 1. Pneumonia. Please take clindamycin 300 mg 4 times a day for the next week, to cover your aspiration pneumonia. We have ordered a home nebulizer. Please use the duo nebs and your nebulizer 3- 4 times a day until all of your symptoms have resolved. Prednisone taper, start with 60 mg a day, and taper by 10 mg each day, as directed. #2. Your CAT scan was mildly abnormal. Please follow this up with your primary care physician, and consider pulmonary consultation, for possible pulmonary hypertension, COPD, lung nodule, etc. #3. GI. Your liver tests were a bit elevated today. Please have these rechecked with your physician this week. 4. Endocrine. Your blood sugar was running a little high in the hospital. Please have your regular physician follow this up. Please follow a fairly low carbohydrate diet , avoiding processed sweets, and trying not to eat any carbohydrates without also adding protein or fat. Discharge medications: Clindamycin 600 mg p.o. 4 times daily 7 days for aspiration pneumonia Prednisone taper, 74-16-21-30-20-10, as directed Duo nebs 3 times daily to 4 times daily until symptoms resolved Tylenol as needed BuSpar 15 mg 3 times daily Tums every 4 hours as needed Fentanyl patch 75 mcg topically every 48 hours Prozac 60 mg daily [place] 10/325 one every 6 hours as needed Lyrica 150 mg p.o. every 6 hours Mirtazapine 15 mg 1-2 tabs p.o. nightly as needed Omeprazole 20 mg p.o. daily as needed Prescriptions: Clindamycin HCl 300 mg PO QIDP #28 capsule Ipratropium/Albuterol [Duoneb] 3 ml NEB Q6H #30 predniSONE [Prednisone] 1 mg PO DAILY #21 tablet - Problem Maintenance (1) Left upper lobe pneumonia Status: Acute Qualifiers: Pneumonia type: aspiration pneumonia (2) Acute respiratory failure Status: Acute Qualifiers: Respiratory failure complication: hypoxia Qualified Code(s): J96.01 - Acute respiratory failure with hypoxia (3) COPD (chronic obstructive pulmonary disease) Status: Acute Qualifiers: COPD type: COPD with acute lower respiratory infection Qualified Code(s): J44.0 - Chronic obstructive pulmonary disease with acute lower respiratory infection (4) Depression Status: Chronic (5) Chronic pain Status: Chronic Qualifiers: Chronic pain type: chronic pain syndrome Qualified Code(s): G89.4 - Chronic pain syndrome - Follow up Plan Follow up with: Selam Samson [Primary Care Provider] - (Call on Wednesday to set up a hospital follow up with your Primary care doctor for 7-10 days.) Disposition: Home, Self-Care Prognosis: Good Rehab Potential: Good Overall status at discharge: patient is progressing back to baseline Medical - DS: Qual - VTE Deep Vein Thrombosis/Pulmonary Embolism Present on Admission: No
[2017-03-07 13:14] LABS: Hemoglobin A1C 5.6 % HGB (4.0-6.0)
== END 2017-03-07 15:29 | disposition home or self-care (01) | DRG 190 ==
LOC: ED 14:20 → MEDSUR 18:52
PROVIDERS: ADMIT Internal Medicine; ATTEND Internal Medicine